=== PATIENT | male | born 1985 | race Caucasian/White ===

== ENCOUNTER 2018-06-27 11:01 | Emergency (ER) | payer OTHER ==
[~2018-06-27] VITALS: Ht 170.2 cm; Wt 79.4 kg
--- NOTE | 2018-06-27 12:03 | RAD ---
KUB History: CONSTIPATION Comparison: None. Findings: 2 supine AP views of the abdomen are submitted. There is a nonobstructive bowel gas pattern. No unusual calcifications are identified. No unusual degree of retained stool is identified by radiograph. Impression: 1. There is a nonobstructive bowel gas pattern. Electronically signed by: Josef Barbour MD (06/27/2018 12:00 PM) [id number]
--- NOTE | 2018-06-27 12:28 | PHYS DOC ---
Past History Past Medical History: No Pertinent History Past Surgical History: No Surgical History Alcohol Use: Occasionally Drug Use: None Adult General Chief Complaint Chief Complaint: CONTISPATION HPI HPI 32 yo male presents with abdominal pain. He describes the pain as an epigastric pressure and cramping. The patient was recently seen 2 days ago in [place] for [place]. They diagnosed him with constipation and advised that he take magnesium citrate and an enema at home. The patient has taken 2 bottles of magnesium citrate as well as 2 enemas. He has had no output. He continues to have moderate upper abdominal cramping and is not sure what else he should do. He denies fever or chills. Review of Systems Review of Systems Constitutional: Denies fever or chills [] Eyes: Denies change in visual acuity, redness, or eye pain [] HENT: Denies nasal congestion or sore throat [] Respiratory: Denies cough or shortness of breath [] Cardiovascular: No additional information not addressed in HPI [] GI: Upper abdominal pain, constipation[] : Denies dysuria or hematuria [] Musculoskeletal: Denies back pain or joint pain [] Integument: Denies rash or skin lesions [] Neurologic: Denies headache, focal weakness or sensory changes [] Endocrine: Denies polyuria or polydipsia [] All other systems were reviewed and found to be within normal limits, except as documented in this note. Allergies Allergies Allergies Coded Allergies Type Severity Reaction Last Updated Verified amoxicillin Allergy Intermediate 06/27/18 Yes Physical Exam Physical Exam Constitutional: Well developed, well nourished, no acute distress, non-toxic appearance. [] HENT: Normocephalic, atraumatic, bilateral external ears normal, oropharynx moist, no oral exudates, nose normal. [] Eyes: PERRLA, EOMI, conjunctiva normal, no discharge. [] Neck: Normal range of motion, no tenderness, supple, no stridor. [] Cardiovascular:Heart rate regular rhythm, no murmur [] Lungs & Thorax: Bilateral breath sounds clear to auscultation [] Abdomen: Bowel sounds normal, soft, epigastric tenderness, no masses, no pulsatile masses. [] Skin: Warm, dry, no erythema, no rash. [] Back: No tenderness, no CVA tenderness. [] Extremities: No tenderness, no cyanosis, no clubbing, ROM intact, no edema. [] Neurologic: Alert and oriented X 3, normal motor function, normal sensory function, no focal deficits noted. [] Psychologic: Affect normal, judgement normal, mood normal. [] Current Patient Data Vital Signs Vital Signs Date Time Temp Pulse Resp B/P (MAP) Pulse Ox O2 Delivery O2 Flow Rate FiO2 06/27/18 11:10 98.6 54 16 100 Room Air EKG EKG [] Radiology/Procedures Radiology/Procedures [] Impressions: KUB History: CONSTIPATION Comparison: None. Findings: 2 supine AP views of the abdomen are submitted. There is a nonobstructive bowel gas pattern. No unusual calcifications are identified. No unusual degree of retained stool is identified by radiograph. Impression: 1. There is a nonobstructive bowel gas pattern. Electronically signed by: Marilin Sy MD (06/27/2018 12:00 PM) [id number] DICTATED AND SIGNED BY: MARILIN SY MD DATE: 06/27/18 1200 CC: WILLARD INFANTE DO; PAULINO MELENDREZ DO ~ Course & Med Decision Making Course & Med Decision Making Pertinent Labs and Imaging studies reviewed. (See chart for details) Patient's labs are unremarkable. His KUB is unremarkable. I reviewed the patient's records from the outside hospital and his CT official report was unremarkable. His labs are also unremarkable. Not sure why they wanted to treat him for constipation. This does not appear to have been necessary. He does not have any significant identifiable abdominal issues. His discomfort could be a reaction to taking the magnesium citrate and any enemas or he could be coming down with viral illness. Either way, I have recommended supportive care and follow-up with his PCP if it does not improve. He is stable for discharge at this time. [] Dragon Disclaimer Dragon Disclaimer This electronic medical record was generated, in whole or in part, using a voice recognition dictation system. Departure Departure: Impression: Primary Impression: Abdominal pain Disposition: HOME, SELF-CARE Condition: STABLE Referrals: WILLARD INFANTE DO (PCP) Patient Instructions: Abdominal Pain (Nonspecific) Problem Qualifiers Primary Impression: Abdominal pain Abdominal location: epigastric Qualified Codes: R10.13 - Epigastric pain PAULINO MELENDREZ DO Jun 27, 2018 12:28
[2018-06-27] MEDS ORDERED: IV NORMAL SALINE 1,000ML 1,000 ML IV ONE (12:45)
[2018-06-27 13:14] LABS: BASO % 0 % (0-3); EOS % 1 % (0-3); HEMATOCRIT 45.4 % (39.0-53.0); HEMOGLOBIN 15.4 g/dL (13.0-17.5); LYMPH # 1.6 x10^3/uL (1.0-4.8); LYMPH % 22 % (24-48); MEAN CORPUSCULAR HEMOGLOBIN 30 pg (25-35); MEAN CORPUSCULAR HGB CONC 34 g/dL (31-37); MEAN CORPUSCULAR VOLUME 88 fL (79-100); MONO # 0.5 x10^3/uL (0.0-1.1); MONO % 7 % (0-9); NEUT # 5.3 x10^3uL (1.8-7.7); NEUT % 71 % (31-73); PLATELET COUNT 249 x10^3/uL (140-400); RED BLOOD COUNT 5.14 x10^6/uL (4.30-5.70); RED CELL DISTRIBUTION WIDTH 12.5 % (11.5-14.5); WHITE BLOOD COUNT 7.5 x10^3/uL (4.0-11.0)
[2018-06-27 13:25] LABS: ALBUMIN 4.6 g/dL (3.4-5.0); ALBUMIN/GLOBULIN RATIO 1.2 (1.0-1.7); CALCIUM 9.9 mg/dL (8.5-10.1); GFR 86.6; TOTAL BILIRUBIN 1.3 mg/dL (0.2-1.0); TOTAL PROTEIN 8.3 g/dL (6.4-8.2)
[2018-06-27 14:30] VITALS: BP 128/70
== END 2018-06-27 14:35 | disposition home or self-care (01) ==
LOC: ER 11:01 → EDSEX 11:01 → ER 14:35
DX: R10.13 Epigastric pain (principal); K59.00 Constipation, unspecified; Z88.1 Allergy status to other antibiotic agents
CPT/HCPCS: 36415; 74018; 80053; 83690; 85025; 99285-25; J7030